=== PATIENT | male | born 1955 | race Caucasian/White ===

== ENCOUNTER 2018-08-20 09:25 | Outpatient (CLI) | payer BC ==
[2018-08-20] VITALS (14 sets, daily range): BP systolic 118–154; BP diastolic 86–109; PULSE 97–116
[~2018-08-20] VITALS: Ht 185.4 cm; Wt 67.6 kg
[2018-08-20] MEDS ORDERED: NATURE'S BLEND100 M2 PO (09:44)
[2018-08-20] MEDS ORDERED: MULTI VITAMINS1 TAB PO (09:44)
[2018-08-20] MEDS ORDERED: B-12 500 MCG PO (09:45)
[2018-08-20] MEDS ORDERED: FOLIC ACID800 MCG PO (09:45)
--- NOTE | 2018-08-20 10:45 | NUR ---
PT AMBULATED INTO CT ROOM AND SAT ON TABLE. PT WAS POSITIONED BY STAFF. MONITORUNG EQUIPMENT PLACED ON PT. IMAGIMNG DONE AND SENT
--- NOTE | 2018-08-20 10:50 | NUR ---
PT DOING WELL. 02 @ 2L/NC.
--- NOTE | 2018-08-20 11:05 | NUR ---
PROCEDURE COMPLETED. MONITORING EQUIPMENT REMOVED. NNO PNUEMOTHORAX NOTED WITH CT. PT TRANSFERED TO [facility] AND TAKEN TO [id number]
--- NOTE | 2018-08-20 13:15 | NUR ---
Discharge instructions given to pt.pt verbalizes understanding.INT removed,catheter tip intact.Pt escortedout via wheelchair by this nurse.
== END 2018-08-20 14:11 | disposition home or self-care (01) ==
LOC: COL.RAD 09:25
DX: C34.12 Malignant neoplasm of upper lobe, left bronchus or lung (principal); J44.9 Chronic obstructive pulmonary disease, unspecified; Z72.0 Tobacco use; Z72.89 Other problems related to lifestyle
CPT/HCPCS: 32107

== ENCOUNTER → 2018-09-08 | Outpatient (CLI) | payer BC ==
[~2018-09-08] MED LIST: B-12 500 MCG PO; FOLIC ACID800 MCG PO; MULTI VITAMINS1 TAB PO; NATURE'S BLEND100 M2 PO
== END ==
LOC: ZCOL.LAB 09:37
DX: Z02.83 Encounter for blood-alcohol and blood-drug test (principal); Y90.6 Blood alcohol level of 120-199 mg/100 ml

== ENCOUNTER → 2018-09-16 | Outpatient (CLI) | payer BC | LOC: ZMSC 14:50 | DX: F10.21 Alcohol dependence, in remission (principal) ==